=== PATIENT | female | born 1945 | race Caucasian/White ===

== ENCOUNTER 2017-01-08 16:44 | Observation (INO) | payer OTHER ==
[2017-01-08] VITALS (8 sets, daily range): BP systolic 156–212; BP diastolic 68–93; PULSE 61–67; RESP 17–22; TEMP 98.4; O2SAT 96–98
[~2017-01-08] VITALS: Ht 152.4 cm; Wt 90.0 kg
[~2017-01-08 16:44] MED LIST: ACET325 PO; ALBU.5I INH; ALBU8I INH; ASPI81TA82 PO; ATOR80TA41 PO; CALC625 PO; FLON0.053; GLUCTAB PO; IBUP600T26 PO; LISI-360 PO; OMEP20TA39 PO; TAB-TAB PO; VITA400C70 PO
[2017-01-08] MEDS ORDERED: NITROGLYCERIN 0.4 MG SL 25 TABS/BTL SL ONE (17:15)
[2017-01-08] MEDS ORDERED: SODIUM CHLORIDE 0.9% FLUSH 10 ML FLUSH IVF PRN (17:15)
[2017-01-08] MEDS ORDERED: GLIP5TAB8 PO (17:51)
[2017-01-08] MEDS ORDERED: ALBUAER3 INH (17:51)
[2017-01-08] MEDS ORDERED: ALBU0.63 NEB (17:51)
[2017-01-08] MEDS ORDERED: LISI-515 PO (17:51)
[2017-01-08] MEDS ORDERED: OMEP20TA PO (17:51)
[2017-01-08] MEDS ORDERED: METO25TA6 PO (17:51)
[2017-01-08] MEDS ORDERED: SYMB80AE INH (17:52)
[2017-01-08] MEDS ORDERED: METF500T PO (17:52)
[2017-01-08] MEDS ORDERED: ASPI81CH CHEW (17:52)
[2017-01-08] MEDS ORDERED: FLUT1SPR5 EACH NARE (17:52)
[2017-01-08] MEDS ORDERED: MIRA3350 PO (17:52)
[2017-01-08] MEDS ORDERED: ROSU1TAB10 PO (17:52)
--- NOTE | 2017-01-08 18:03 | PD ---
HPI Chief Complaint: Chest Pain Time Seen by Provider: 16:57 Travel History International Travel<30 days: No Contact w/Intl Traveler<30days: No Traveled to known affect area: No History of Present Illness HPI 71-year-old female that presents to the ED for evaluation of chest pain. Patient came by ambulance for evaluation of this. Patient has a chronic history of asthma as well as diabetes and hyperlipidemia. Also hypertension. Per patient she's had The past That Never Required Stenting but Only Medical Management. She Does Take Aspirin. She states that the pain has been ongoing for about 3 days. Per patient he feels like a pressure. Pain radiates to the left arm and has numbness and tingling. Denies any shortness of breath. No fevers chills or sweats. No cough or runny nose. Denies any shortness of breath or wheezing like. States that the pain is 7 out of 10. She wasn't not given any aspirin by ambulance as patient declined it. No injuries. No recent travel. PFSH Past Medical History Hx Anticoagulant Therapy: Yes (asa) Asthma: Yes Heart Rhythm Problems: No Cardiac Catheterization: No Cardiovascular Problems: Yes High Cholesterol: Yes Chest Pain: No Congestive Heart Failure: No COPD: No Diabetes: Yes Patient Takes Glucophage: Yes Diminished Hearing: No Diverticulitis: Yes Gastrointestinal Disorders: Yes GERD: Yes Genitourinary: No Hiatal Hernia: No Hypertension: Yes Musculoskeletal: No Neurologic: No Reproductive: No Respiratory: Yes (asthma) Sleep Apnea: No Ulcer: No Menopausal: Yes Ovarian Cysts: Yes Past Surgical History Abdominal Surgery: No Cardiac Surgery: No Coronary Artery Bypass Graft: No Ear Surgery: No Endocrine Surgery: No Eye Surgery: No Genitourinary Surgery: No Gynecologic Surgery: Yes (hysterectomy) Hysterectomy: Yes Oral Surgery: No Thoracic Surgery: No Other Surgery: Yes Family History Family Myocardial Infarction: Yes (PATERNAL) Social History Alcohol Use: No Tobacco Use: No Substance Use: No Allergies-Medications (Allergen,Severity, Reaction): Coded Allergies: aspirin (Unverified Allergy, Severe, ASTHMATIC ATTACK, 01/08/17) penicillin G (Unverified Allergy, Severe, Anaphylaxis, 01/08/17) milk (Unverified Allergy, Intermediate, DIARRHEA, 01/08/17) montelukast (Verified Allergy, Intermediate, 01/08/17) pregabalin (Verified Allergy, Intermediate, 01/08/17) Uncoded Allergies: COUGH SYRUP (Allergy, Severe, ASTHMATIC ATTACK, 06/15/08) Reported Meds & Prescriptions Reported Meds & Active Scripts Active Reported Miralax Powder (Polyethylene Glycol 3350 Powder) 17 Gm Powd 17 Gm PO DAILY Mix and dissolve one measuring cap-ful (17 grams) in water or juice. Rosuvastatin (Rosuvastatin Calcium) 40 Mg Tab 40 Mg PO DAILY Flonase Nasal [place] (Fluticasone Nasal [place]) 50 Mcg/Act [place] 50 Mcg EACH NARE BID Metformin (Metformin HCl) 500 Mg Tab 500 Mg PO BIDPC Aspirin 81 Mg Chew 81 Mg CHEW DAILY Symbicort Inh (Budesonide/Formoterol Fumarate) 80-4.5 Mcg/Act Aero 2 Puff INH Q12HR Proair Hfa 8.5 GM Inh (Albuterol Sulfate) 90 Mcg/Act Aer 2 Puff INH Q4HR PRN 108 mcg/actuation Albuterol Neb (Albuterol Sulfate) 0.63 Mg/3 Ml Neb 0.63 Mg NEB Q4HR NEB PRN Omeprazole 20 Mg Tab 20 Mg PO DAILY Glipizide 5 Mg Tab 5 Mg PO BIDAC Take 30 minutes before a meal Lisinopril 20 Mg Tab 20 Mg PO DAILY Metoprolol Succinate ER 24 HR (Metoprolol Succinate) 25 Mg Tab 25 Mg PO DAILY Review of Systems Except as stated in HPI: all other systems reviewed are Neg Physical Exam Narrative GENERAL: SKIN: Warm and dry. HEAD: Atraumatic. Normocephalic. EYES: Pupils equal and round. No scleral icterus. No injection or drainage. ENT: No nasal bleeding or discharge. Mucous membranes pink and moist. Tongue is midline. No uvula deviation. NECK: Trachea midline. No JVD. CARDIOVASCULAR: Regular rate and rhythm. No murmurs, S3, S4. Chest pain not reproducible with touch. RESPIRATORY: No accessory muscle use. Clear to auscultation. Breath sounds equal bilaterally. GASTROINTESTINAL: Abdomen soft, non-tender, nondistended. Hepatic and splenic margins not palpable. MUSCULOSKELETAL: Extremities without clubbing, cyanosis, or edema. No obvious deformities. Full range of motion of the upper and lower extremities bilaterally. 2+ pulses bilaterally. NEUROLOGICAL: Awake and alert. No obvious cranial nerve deficits. Motor grossly within normal limits. Five out of 5 muscle strength in the arms and legs. Normal speech. PSYCHIATRIC: Appropriate mood and affect; insight and judgment normal. Data Data Last Documented VS Vital Signs Date Time Temp Pulse Resp B/P (MAP) Pulse Ox O2 Delivery O2 Flow Rate FiO2 01/08/17 19:28 67 22 212/93 (132) Nasal Cannula 2.00 201/87 (125) 01/08/17 19:19 98 Orders Orders Electrocardiogram (01/08/17 17:05) Basic Metabolic Panel (Bmp) (01/08/17 17:05) B-Type Natriuretic Peptide (01/08/17 17:05) Ckmb (Isoenzyme) Profile (01/08/17 17:05) Complete Blood Count With Diff (01/08/17 17:05) Magnesium (Mg) (01/08/17 17:05) Prothrombin Time / Inr (Pt) (01/08/17 17:05) Act Partial Throm Time (Ptt) (01/08/17 17:05) Troponin I (01/08/17 17:05) Lipase (01/08/17 17:05) Chest, Single Ap (01/08/17 17:05) Ecg Monitoring (01/08/17 17:05) Bilateral Bp Monitoring (01/08/17 17:05) Iv Access Insert/Monitor (01/08/17 17:05) Oximetry (01/08/17 17:05) Oxygen Administration (01/08/17 17:05) Sodium Chloride 0.9% Flush (Ns Flush) (01/08/17 17:15) Nitroglycerin Sl (Nitrostat Sl) (01/08/17 17:15) B-Type Natriuretic Peptide (01/08/17 17:54) Ct Thorax/ Chest W Iv Contrast (01/08/17 ) Acetaminophen (Tylenol) (01/08/17 19:30) Clonidine (Catapres) (01/08/17 19:30) Iohexol 350 Inj (Omnipaque 350 Inj) (01/08/17 20:07) Azithromycin (Zithromax) (01/08/17 20:45) Admit Order (Ed Use Only) (01/08/17 20:38) Activity Bed Rest With Brp (01/08/17 20:39) Vital Signs (Adult) Q4H (01/08/17 20:39) Cardiac Rhythm .As Directed (01/08/17 20:39) Notify Dr: Other .PRN (01/08/17 20:39) Notify Dr. Parameters (01/08/17 20:39) Resp Oxygen Nasal Cannula (01/08/17 ) Ckmb (Isoenzyme) Profile (01/08/17 20:39) Ckmb (Isoenzyme) Profile (01/08/17 23:39) Troponin I (01/08/17 20:39) Troponin I (01/08/17 23:39) Electrocardiogram (01/08/17 20:39) Electrocardiogram (01/08/17 23:39) ^ Obtain (01/08/17 20:39) Sodium Chloride 0.9% Flush (Ns Flush) (01/08/17 20:45) Sodium Chloride 0.9% Flush (Ns Flush) (01/08/17 21:00) Acetaminophen (Tylenol) (01/08/17 20:45) Ondansetron Inj (Zofran Inj) (01/08/17 20:45) Manager Quality Compliance / Telemetry OZZIE.Q8H (01/08/17 20:39) Diet Diabetic (01/09/17 Breakfast) Labs Laboratory Tests Test 01/08/17 17:30 White Blood Count 8.2 TH/MM3 Red Blood Count 3.73 MIL/MM3 Hemoglobin 11.3 GM/DL Hematocrit 33.5 % Mean Corpuscular Volume 89.8 FL Mean Corpuscular Hemoglobin 30.3 PG Mean Corpuscular Hemoglobin Concent 33.8 % Red Cell Distribution Width 14.7 % Platelet Count 254 TH/MM3 Mean Platelet Volume 10.2 FL Neutrophils (%) (Auto) 68.9 % Lymphocytes (%) (Auto) 19.7 % Monocytes (%) (Auto) 7.1 % Eosinophils (%) (Auto) 3.7 % Basophils (%) (Auto) 0.6 % Neutrophils # (Auto) 5.7 TH/MM3 Lymphocytes # (Auto) 1.6 TH/MM3 Monocytes # (Auto) 0.6 TH/MM3 Eosinophils # (Auto) 0.3 TH/MM3 Basophils # (Auto) 0.0 TH/MM3 CBC Comment DIFF FINAL Differential Comment Prothrombin Time 10.5 SEC Prothromb Time International Ratio 1.0 RATIO Activated Partial Thromboplast Time 26.7 SEC Blood Urea Nitrogen 14 MG/DL Creatinine 0.90 MG/DL Random Glucose 75 MG/DL Calcium Level 9.0 MG/DL Magnesium Level 1.7 MG/DL Sodium Level 142 MEQ/L Potassium Level 3.6 MEQ/L Chloride Level 108 MEQ/L Carbon Dioxide Level 26.5 MEQ/L Anion Gap 8 MEQ/L Estimat Glomerular Filtration Rate 62 ML/MIN Total Creatine Kinase 64 U/L Troponin I LESS THAN 0.02 NG/ML B-Type Natriuretic Peptide 56 PG/ML Lipase 114 U/L MDM Medical Decision Making Medical Screen Exam Complete: Yes Emergency Medical Condition: Yes Medical Record Reviewed: Yes Interpretation(s) EKG shows sinus rhythm with no sign of acute ischemia or arrhythmia read by me and attending. Last Impressions Chest X-Ray 01/08/17 1705 Signed Impressions: Service Date/Time: Sunday, January 08, 2017 17:32 - CONCLUSION: Persistent, possibly increasing infiltrate in the left lower lung. There is also suggestion of right hilar adenopathy. Recommend further characterization with CT thorax with contrast. Tomas Israel MD Chest CT 01/08/17 0000 Signed Impressions: Service Date/Time: Sunday, January 08, 2017 19:49 - CONCLUSION: Lingular and left lung base infiltrate. Conrado Haas MD CBC & BMP Diagram 01/08/17 17:30 Calcium Level 9.0, Magnesium Level 1.7 Troponin and CK-MB negative. BNP negative. Differential Diagnosis Chest pain versus atypical chest pain versus an STEMI versus STEMI versus ACS versus normal exam Narrative Course 71-year-old female that presents to the ED for evaluation of chest pain. Patient was properly examined and was found to have signs and symptoms consistent appears to be possible cardiac chest pain. Labs and imaging were ordered. Patient was given nitroglycerin here. Initial EKG did not show any sign of ST elevation read by me and attending. Labs and imaging showed no sign of acute disease other than possible infiltrate. CT was ordered and CT show what appears to be infiltrated with likely possible pneumonia per my attending. Case was discussed with Dr. Moses who recommends admission to the chest pain center and starring the patient on azithromycin PO. Patient doesn't have a long also account she still symptomatic. Small infiltrate does not really explain why patient has this radiculopathy to the left arm and there is definite concern for ACS is patient does have a history of blockage per patient as well as multiple risk factors. This is why my attending Dr. Moses recommends admission to the chest pain center for chest pain center rule out. Patient was given the first dose of azithromycin here. She evaluate the patient with me and agrees with plan. Patient was admitted to the chest pain center. This was discussed with the family and patient were in agreement with plan. Caregiver was at the bedside and did mention to me that patient has been complaining of some right ear pain. I did examine both years and she does appear to have what appears to be an erythematous bulging right TM likely otitis media. Will continue with azithromycin for now. Procedures EKG Prior to Arrival: No Diagnosis Primary Impression: Chest pain in adult Admitting Information Admitting Physician Requests: Observation Jeol Rhodes Jan 08, 2017 18:03
--- NOTE | 2017-01-08 18:05 | RADRPT ---
EXAM DATE/TIME: 01/08/2017 17:32 [facility] COMPARISON: CHEST SINGLE AP, June 12, 2013, 1:32. INDICATIONS : Chest pain. MEDICAL HISTORY : asthma. SURGICAL HISTORY : None. ENCOUNTER: Initial ACUITY: 3 days PAIN SCORE: 10/10 LOCATION: Left chest FINDINGS: There is hazy opacity in the left lung causing some loss of delineation of the left heart border. A few air bronchograms are present in the left lower lung. There is fullness in the right hilar region . The heart is normal size. CONCLUSION: Persistent, possibly increasing infiltrate in the left lower lung. There is also suggestion of right hilar adenopathy. Recommend further characterization with CT thorax with contrast. Tomas Israel MD on January 08, 2017 at 18:03 Board Certified Radiologist. This report was verified electronically.
[2017-01-08 18:08] LABS: AUTOMATED NEUTROPHIL # 5.7 TH/MM3 (1.8-7.7); BASOPHIL % 0.6 % (0.0-2.0); EOSINOPHIL # 0.3 TH/MM3 (0-0.4); EOSINOPHIL % 3.7 % (0.0-4.0); HEMATOCRIT 33.5 % (35.0-46.0); HEMO FLAGS DIFF FINAL; LYMPH % 19.7 % (9.0-44.0); LYMPHOCYTE # 1.6 TH/MM3 (1.0-4.8); MEAN CELL VOLUME 89.8 FL (80.0-100.0); MEAN CORPUSCULAR HEMOGLOBIN 30.3 PG (27.0-34.0); MEAN CORPUSCULAR HGB CONC 33.8 % (32.0-36.0); MONO % 7.1 % (0.0-8.0); NEUT % 68.9 % (16.0-70.0); PLATELET COUNT 254 TH/MM3 (150-450); RED BLOOD COUNT 3.73 MIL/MM3 (4.00-5.30); RED CELL DISTRIBUTION WIDTH 14.7 % (11.6-17.2); WHITE BLOOD COUNT 8.2 TH/MM3 (4.0-11.0)
[2017-01-08 18:14] LABS: APTT (PATIENT) 26.7 SEC (24.3-30.1); PROTHROMBIN TIME - PATIENT 10.5 SEC (9.8-11.6)
[2017-01-08 18:31] LABS: ANION GAP 8 MEQ/L (5-15); BICARBONATE 26.5 MEQ/L (21.0-32.0); BLOOD UREA NITROGEN 14 MG/DL (7-18); CHLORIDE 108 MEQ/L (98-107); GLOMERULAR FILTRATION RATE 62 ML/MIN (>89); MAGNESIUM 1.7 MG/DL (1.5-2.5); POTASSIUM 3.6 MEQ/L (3.5-5.1); SODIUM (NA) 142 MEQ/L (136-145)
[2017-01-08 18:46] LABS: CREATINE KINASE 64 U/L (26-192)
[2017-01-08] MEDS ORDERED: ACETAMINOPHEN 325 MG TAB PO ONE (19:30)
[2017-01-08] MEDS ORDERED: cloNIDine HCL 0.1 MG TAB PO ONE (19:30)
[2017-01-08] MEDS ORDERED: IOHEXOL 350 MG/ML 10 ML VIAL (for RAD DIAG) IVCONTRAST ONE (20:07)
--- NOTE | 2017-01-08 20:24 | RADRPT ---
EXAM DATE/TIME: 01/08/2017 19:49 [facility] COMPARISON: CT ABDOMEN & PELVIS W CONTRAST, December 30, 2013, 20:06. INDICATIONS : Patient complains of chest pain, numbness down into left arm. IV CONTRAST: 70 cc Omnipaque 350 (iohexol) IV RADIATION DOSE: 7.14 CTDIvol (mGy) MEDICAL HISTORY : Hypertension. Diverticulitis. Diabetes mellitus type 1. SURGICAL HISTORY : Hysterectomy. ENCOUNTER: Initial ACUITY: 2 days PAIN SCALE: 5/10 LOCATION: chest TECHNIQUE: Volumetric scanning of the chest was performed. Using automated exposure control and adjustment of t he mA and/or kV according to patient size, radiation dose was kept as low as reasonably achievable to obtain optimal diagnostic quality images. DICOM format image data is available electronically for review and comparison. Follow-up recommendations for detected pulmonary nodules are based at a minimum on nodule size and pa tient risk factors according to Fleischner Society Guidelines. FINDINGS: Mild left lung base and lingular atelectasis and/or infiltrate is seen.. There is no pleural effusio n. No appreciable pathological adenopathy is seen within the mediastinum. Coronary artery calcificat ions are seen typically seen with CAD and need to be evaluated clinically. Approximate 5.7 cm simple cyst is present in the left kidney present on the prior study from 2013. CONCLUSION: Lingular and left lung base infiltrate. Conrado Haas MD on January 08, 2017 at 20:20 Board Certified Radiologist. This report was verified electronically.
[2017-01-08] MEDS ORDERED: SODIUM CHLORIDE 0.9% FLUSH 10 ML FLUSH IV FLUSH PRN (20:45)
[2017-01-08] MEDS ORDERED: AZITHROMYCIN 250 MG TAB PO ONE (20:45)
[2017-01-08] MEDS ORDERED: ACETAMINOPHEN 500 MG CPLT PO PRN (20:45)
[2017-01-08] MEDS ORDERED: ONDANSETRON HCL 4 MG/2 ML VIAL IV PUSH PRN (20:45)
[2017-01-08] MEDS ORDERED: SODIUM CHLORIDE 0.9% FLUSH 10 ML FLUSH IV FLUSH SCH (21:00)
--- NOTE | 2017-01-08 21:42 | EKG ---
Date Performed: 01/08/2017 Time Performed: 17:02:44 PTAGE: 71 years EKG: Sinus rhythm NONSPECIFIC T-WAVE ABNORMALITY BORDERLINE ECG PREVIOUS TRACING : 01/21/2014 20.10 Compared to prior tracing no significant change DOCTOR: Donna Nagy Interpretating Date/Time 01/08/2017 21:42:15
[2017-01-08 22:09] LABS: CREATINE KINASE 78 U/L (26-192)
[2017-01-09 00:07] VITALS: BP 135/60; PULSE 66; RESP 17; TEMP 97.8; O2SAT 93
[2017-01-09 00:17] VITALS: PULSE 75
[2017-01-09 00:44] LABS: CREATINE KINASE 52 U/L (26-192)
[2017-01-09 03:31] VITALS: BP 140/63; PULSE 68; RESP 17; TEMP 98.5; O2SAT 94
[2017-01-09 03:45] VITALS: PULSE 62
[2017-01-09 07:41] VITALS: BP 145/63; PULSE 62; RESP 20; TEMP 97.7; O2SAT 94
[2017-01-09 07:53] VITALS: O2SAT 95
--- NOTE | 2017-01-09 08:21 | HHI.HP ---
HPI Primary Care Physician Gian Robins Chief Complaint Chest pain History of Present Illness 71-year-old female with known hypertension and diabetes presents to emergency room for further evaluation of chest pain. Onset Saturday afternoon aggressively becoming more severe. Location substernal, characterized as tightness. Duration intermittent lasting a few minutes, nonexertional. No radiation. No known precipitating or relieving factors. No associated symptoms of nausea, vomiting, shortness of breath, or diaphoresis. No recent illness or sputum production. Endorses similar pain in the past. Review of Systems General: No fatigue,weakness, fever, chills, or recent illness. Has been her general state of health, however endorses she is currently under a lot of stress as her is terminally ill. HEENT: No MIRZA, seasonal allergies, takes Flonase for nasal congestion. CV: As stated above. No current chest pain, tightness, or pressure. RESP: No SOB, cough, wheeze, or sputum production. History of asthma, reporting to currently be well controlled without increase use of rescue inhalers. GI: No nausea, vomiting, or bowel changes. History of gastritis and diverticulosis. EXT: No pedal edema. MS: No discomfort or change in ROM NEURO: No change in memory, difficulty with balance, LOC, motor/sensory deficits PSYCH: Current situational stress regarding 's terminal illness. SKIN: No rashes, no concerning lesions Past Family Social History Allergies: Coded Allergies: aspirin (Unverified Allergy, Severe, ASTHMATIC ATTACK, 01/08/17) penicillin G (Unverified Allergy, Severe, Anaphylaxis, 01/08/17) milk (Unverified Allergy, Intermediate, DIARRHEA, 01/08/17) montelukast (Verified Allergy, Intermediate, 01/08/17) pregabalin (Verified Allergy, Intermediate, 01/08/17) Uncoded Allergies: COUGH SYRUP (Allergy, Severe, ASTHMATIC ATTACK, 06/15/08) Past Medical History Hypertension, diabetes, asthma, diverticulosis, gastritis Past Surgical History Hysterectomy at age 27. Right knee surgery, left carpal tunnel on an elbow surgery Reported Medications Reported Meds & Active Scripts Active Reported Miralax Powder (Polyethylene Glycol 3350 Powder) 17 Gm Powd 17 Gm PO DAILY Mix and dissolve one measuring cap-ful (17 grams) in water or juice. Rosuvastatin (Rosuvastatin Calcium) 40 Mg Tab 40 Mg PO DAILY Flonase Nasal Vincent (Fluticasone Nasal Vincent) 50 Mcg/Act Vincent 50 Mcg EACH NARE BID Metformin (Metformin HCl) 500 Mg Tab 500 Mg PO BIDPC Aspirin 81 Mg Chew 81 Mg CHEW DAILY Symbicort Inh (Budesonide/Formoterol Fumarate) 80-4.5 Mcg/Act Aero 2 Puff INH Q12HR Proair Hfa 8.5 GM Inh (Albuterol Sulfate) 90 Mcg/Act Aer 2 Puff INH Q4HR PRN 108 mcg/actuation Albuterol Neb (Albuterol Sulfate) 0.63 Mg/3 Ml Neb 0.63 Mg NEB Q4HR NEB PRN Omeprazole 20 Mg Tab 20 Mg PO DAILY Glipizide 5 Mg Tab 5 Mg PO BIDAC Take 30 minutes before a meal Lisinopril 20 Mg Tab 20 Mg PO DAILY Metoprolol Succinate ER 24 HR (Metoprolol Succinate) 25 Mg Tab 25 Mg PO DAILY Active Ordered Medications Current Medications Medications (Trade) Dose Ordered Sig/Miryam Route Start Time Stop Time Status Last Admin (NS Flush) 2 ml UNSCH PRN IVF 01/08/17 17:15 (NS Flush) 2 ml UNSCH PRN IV FLUSH 01/08/17 20:45 (NS Flush) 2 ml BID IV FLUSH 01/08/17 21:00 01/08/17 22:58 (Tylenol) 500 mg Q4H PRN PO 01/08/17 20:45 01/08/17 22:58 (Zofran Inj) 4 mg Q6H PRN IV PUSH 01/08/17 20:45 Family History Brother age 46 MD. Father cardiac stents in his late 60s. Social History Known hypertension and diabetes. No known hyperlipidemia or coronary artery disease. Lifelong nonsmoker. Denies any alcohol or illegal drug use. Ambulates independently. Lives with , they have a caregiver. Past cardiac testing 12/29/2008-Cardiac catheterization-(Dr. Goldstein) Assessment 1. Essentially normal coronary arteries by angiography. 2. Preserved LV systolic function. Recommendations-1. Risk factor modification. 2. Continue workup for noncardiac causes of chest pain. Physical Exam Vital Signs Vital Signs Date Time Temp Pulse Resp B/P (MAP) Pulse Ox O2 Delivery O2 Flow Rate FiO2 01/09/17 07:41 97.7 62 20 145/63 (90) 94 10/25/17 03:45 62 01/09/17 03:31 98.5 68 17 140/63 (88) 94 01/09/17 00:17 75 01/09/17 00:07 97.8 66 17 135/60 (85) 93 01/09/17 00:02 18 01/08/17 22:16 98.4 61 17 156/72 (100) 96 01/08/17 22:04 01/08/17 21:35 97 Nasal Cannula 2.00 01/08/17 20:47 62 20 159/68 (98) 97 Nasal Cannula 2.00 01/08/17 19:28 67 22 212/93 (132) Nasal Cannula 2.00 201/87 (125) 01/08/17 19:19 61 20 212/93 (132) 98 Nasal Cannula 01/08/17 17:44 97 Nasal Cannula 2.00 01/08/17 17:40 61 175/81 (112) 01/08/17 17:40 97 Nasal Cannula 2.00 01/08/17 17:02 66 18 177/82 (113) 97 Nasal Cannula 2.00 01/08/17 16:59 67 18 177/82 (113) 97 Physical Exam GENERAL: Alert WN, WD, NAD, , obese elderly female HEAD: NC, AT EYES: Sclera clear, pupils equal and round ENT: Mucous membranes pink and moist NECK: Supple, no masses, trachea midline CV: RRR, without murmur, rub, gallop, no JVD, S1-S2 no S3-S4. Chest pain not reproduced with palpation. RESP: Clear lungs throughout bilateral, no crackles, wheeze, rhonchi, symmetrical chest rise, nonlabored, able to speak in full sentences ABD: Soft, NT, ND, no masses, positive bowel tones EXT: Pulses +24 MS: Normal tone 4 extremities, nontender, no obvious deformities, full range of motion NEURO: CN II through CN XII grossly intact, motor strength 5/5 PSYCH: A+O 3, pleasant affect, appropriate speech, appropriate mood and affect , insight and judgment SKIN: Normal turgor, normal texture, no lesions, no rashes Laboratory Laboratory Tests Test 01/08/17 17:30 01/08/17 20:50 01/09/17 00:00 White Blood Count 8.2 Red Blood Count 3.73 Hemoglobin 11.3 Hematocrit 33.5 Mean Corpuscular Volume 89.8 Mean Corpuscular Hemoglobin 30.3 Mean Corpuscular Hemoglobin Concent 33.8 Red Cell Distribution Width 14.7 Platelet Count 254 Mean Platelet Volume 10.2 Neutrophils (%) (Auto) 68.9 Lymphocytes (%) (Auto) 19.7 Monocytes (%) (Auto) 7.1 Eosinophils (%) (Auto) 3.7 Basophils (%) (Auto) 0.6 Neutrophils # (Auto) 5.7 Lymphocytes # (Auto) 1.6 Monocytes # (Auto) 0.6 Eosinophils # (Auto) 0.3 Basophils # (Auto) 0.0 CBC Comment DIFF FINAL Differential Comment Prothrombin Time 10.5 Prothromb Time International Ratio 1.0 Activated Partial Thromboplast Time 26.7 Blood Urea Nitrogen 14 Creatinine 0.90 Random Glucose 75 Calcium Level 9.0 Magnesium Level 1.7 Sodium Level 142 Potassium Level 3.6 Chloride Level 108 Carbon Dioxide Level 26.5 Anion Gap 8 Estimat Glomerular Filtration Rate 62 Total Creatine Kinase 64 78 52 Troponin I LESS THAN 0.02 LESS THAN 0.02 LESS THAN 0.02 B-Type Natriuretic Peptide 56 Lipase 114 Result Diagram: 01/08/17172901/08/171729 Imaging Last Impressions Myocardial Perfusion Scan Nuc Med 01/09/17 0000 Signed Impressions: Service Date/Time: Monday, January 09, 2017 10:21 - CONCLUSION: 1. No fixed or reversible defects to suggest ischemia or infarction. 2. Decreased calculated ejection fraction of 47%%. The left ventricle is mildly dilated. RISK CATEGORY : Low (<1%% Annual Mortality Rate) Arturo Priest MD Chest X-Ray 01/08/17 1705 Signed Impressions: Service Date/Time: Sunday, January 08, 2017 17:32 - CONCLUSION: Persistent, possibly increasing infiltrate in the left lower lung. There is also suggestion of right hilar adenopathy. Recommend further characterization with CT thorax with contrast. Tomas Israel MD Chest CT 01/08/17 0000 Signed Impressions: Service Date/Time: Sunday, January 08, 2017 19:49 - CONCLUSION: Lingular and left lung base infiltrate. Conrado Haas MD Course EKG Sinus rhythm, nonspecific T-wave changes Caprini VTE Risk Assessment Caprini VTE Risk Assessment: Mod/High Risk (score >= 2) Caprini Risk Assessment Model Point Value = 1 Point Value = 2 Point Value = 3 Point Value = 5 Age 41-60 Minor surgery BMI > 25 kg/m2 Swollen legs Varicose veins or History of unexplained or recurrent spontaneous Oral contraceptives or hormone replacement Sepsis (< 1 month) Serious lung disease, including pneumonia (< 1 month) Abnormal pulmonary function Acute myocardial infarction Congestive heart failure (< 1 month) History of inflammatory bowel disease Medical patient at bed rest Age 61-74 Arthroscopic surgery Major open surgery (> 45 min) Laparoscopic surgery (> 45 min) Malignancy Confined to bed (> 72 hours) Immobilizing plaster cast Central venous access Age >= 75 History of VTE Family history of VTE Factor V Leiden Prothrombin [id number] Lupus anticoagulant Anticardiolipin antibodies Elevated serum homocysteine Heparin-induced thrombocytopenia Other congenital or acquired thrombophilia Stroke (< 1 month) Elective arthroplasty Hip, pelvis, or leg fracture Acute spinal cord injury (< 1 month) Prophylaxis Regimen Total Risk Factor Score Risk Level Prophylaxis Regimen 0-1 Low Early ambulation 2 Moderate Order ONE of the following: *Sequential Compression Device (SCD) *Heparin 5000 units SQ BID 3-4 Higher Order ONE of the following medications: *Heparin 5000 units SQ TID *Enoxaparin/Lovenox 40 mg SQ daily (WT < 150 kg, CrCl > 30 mL/min) *Enoxaparin/Lovenox 30 mg SQ daily (WT < 150 kg, CrCl > 10-29 mL/min) *Enoxaparin/Lovenox 30 mg SQ BID (WT < 150 kg, CrCl > 30 mL/min) AND/OR *Sequential Compression Device (SCD) 5 or more Highest Order ONE of the following medications: *Heparin 5000 units SQ TID (Preferred with Epidurals) *Enoxaparin/Lovenox 40 mg SQ daily (WT < 150 kg, CrCl > 30 mL/min) *Enoxaparin/Lovenox 30 mg SQ daily (WT < 150 kg, CrCl > 10-29 mL/min) *Enoxaparin/Lovenox 30 mg SQ BID (WT < 150 kg, CrCl > 30 mL/min) AND *Sequential Compression Device (SCD) Assessment and Plan Assessment and Plan #1 Chest pain-admitted to chest pain center. Ruled out with 3 sets of EKGs, cardiac enzymes, and monitor telemetry overnight. Seen and evaluated by Dr. Dominick Domingo. Proceed with chemical stress test, if unremarkable will discharge home later this afternoon. #2 Hypertension-continue metoprolol and lisinopril #3 Diabetes-continue metformin and glipizide, continue Crestor #4 Asthma-continue Symbicort and albuterol every 2 hours when necessary as needed #5 Situational stress-encouraged support from her family and friends. Eli Rashid Jan 09, 2017 08:21
[2017-01-09] MEDS ORDERED: REGADENOSON INJ 0.4 MG/5 ML SYR ONE (10:51)
--- NOTE | 2017-01-09 12:43 | RADRPT ---
EXAM DATE/TIME: 01/09/2017 10:21 [facility] COMPARISON: CT THORAX W CONTRAST, January 08, 2017, 19:49. INDICATIONS : Left chest pain radiating to left arm. Angina. DOSE: 25.8 mCi Tc99m Myoview at stress. 8.7 mCi Tc99m Myoview at rest. 0.4 mg Lexiscan STRESS SYMPTOMS: Short of breath. EJECTION FRACTION: 47% MEDICAL HISTORY : Hypertension. Diabetes mellitus type 2. Gastroesophageal reflux disease. SURGICAL HISTORY : Hysterectomy. ENCOUNTER: Initial ACUITY: 3 days PAIN SCALE: 7/10 LOCATION: Left chest TECHNIQUE: The patient underwent pharmacologic stress with infusion of prescribed dose. Continuous ECG tracing was monitored during stress. Gated SPECT imaging was performed after stress and conventional SPECT i maging was performed at rest. The examination was performed on a SPECT/CT scanner, both attenuation and non-corrected datasets were reviewed. FINDINGS: DISTRIBUTION: The maximum perfused segment at stress is in the anterior wall. PERFUSION STUDY: The pattern of perfusion at stress is within normal limits. GATED STUDY: There is intact wall motion and thickening without hypokinetic or dyskinetic segments. The left ventr icle is mildly dilated in the t.i.d. equals 1.14. CONCLUSION: 1. No fixed or reversible defects to suggest ischemia or infarction. 2. Decreased calculated ejection fraction of 47%. The left ventricle is mildly dilated. RISK CATEGORY: Low (<1% Annual Mortality Rate) Arturo Priest MD on January 09, 2017 at 12:36 Board Certified Radiologist. This report was verified electronically.
--- NOTE | 2017-01-09 13:37 | HHI.DCPOC ---
Discharge Care Plan Diagnosis: (1) Atypical chest pain (2) Hypertension (3) Situational stress (4) Type 2 diabetes mellitus Goals to Promote Your Health * To prevent worsening of your condition and complications * To maintain your health at the optimal level Directions to Meet Your Goals Take your medications as prescribed Follow your dietary instruction Follow activity as directed Keep your appointments as scheduled Take your immunizations and boosters as scheduled If your symptoms worsen call your PCP, if no PCP go to Urgent Care Center or Emergency Room Smoking is Dangerous to Your Health. Avoid second hand smoke Call the 24-hour hour crisis hotline for domestic abuse at Eli Rashid Jan 09, 2017 13:37
[2017-01-09] MEDS ORDERED: PANTOPRAZOLE SOD 20 MG DELAYED RELEASE TAB PO SCH (15:15)
[2017-01-09] MEDS ORDERED: BUDESONIDE-FORMOTEROL 80/4.5 MCG INHALER INH SCH (15:15)
[2017-01-09] MEDS ORDERED: ATORVASTATIN 80 MG TAB PO SCH (15:15)
[2017-01-09] MEDS ORDERED: METOPROLOL SUCCINATE 25 MG EXTENDED RELEASE TAB PO SCH (15:30)
[2017-01-09] MEDS ORDERED: LISINOPRIL 20 MG TAB PO SCH (15:30)
[2017-01-09] MEDS ORDERED: glipiZIDE 5 MG TAB PO SCH (16:00)
--- NOTE | 2017-01-09 16:12 | EKG ---
Date Performed: 01/09/2017 Time Performed: 00:12:22 PTAGE: 71 years EKG: Sinus rhythm NONSPECIFIC T-WAVE ABNORMALITY BORDERLINE ECG PREVIOUS TRACING : 01/08/2017 21.01 Since previous tracing, non specific T wave changes are mor e prominent DOCTOR: Dominick Domingo Interpretating Date/Time 01/09/2017 16:11:39
--- NOTE | 2017-01-09 16:16 | EKG ---
Date Performed: 01/08/2017 Time Performed: 21:01:15 PTAGE: 71 years EKG: SINUS BRADYCARDIA BORDERLINE ECG PREVIOUS TRACING : 01/08/2017 17.02 Since previous tracing, no significant change noted DOCTOR: Dominick Domingo Interpretating Date/Time 01/09/2017 16:13:59
--- NOTE | 2017-01-09 16:19 | TR ---
Date Performed: 01/09/2017 Time Performed: 11:01:15 DOCTOR: Dominick Domingo DRUG LIST: CLINICAL HISTORY: REASON FOR TEST: REASON FOR ENDING: OBSERVATION: CONCLUSION: Lexiscan stress test was performed under standard four minute protocol. Radionuclid e was injected one minute prior to ending the test. No electrocardiographic abormalities were present to suggest ischemia. Nuclear imaging and interpretation are pending. COMMENTS:
[2017-01-11] MEDS ORDERED: metFORMIN HCL 500 MG TAB PO SCH (09:00)
== END 2017-01-09 15:56 | disposition home or self-care (01) ==
LOC: NEPE 16:44 → NEDA 20:39 → NEPHCDU 21:59
PROVIDERS: ADMIT Internal Medicine Interventional Cardiology; ATTEND Internal Medicine Interventional Cardiology
DX: R07.89 Other chest pain (principal); I10 Essential (primary) hypertension; E11.9 Type 2 diabetes mellitus without complications; R20.2 Paresthesia of skin; J45.909 Unspecified asthma, uncomplicated; E78.00 Pure hypercholesterolemia, unspecified; K21.9 Gastro-esophageal reflux disease without esophagitis; K57.92 Diverticulitis of intestine, part unspecified, without perforation or abscess without bleeding; R94.31 Abnormal electrocardiogram [ECG] [EKG]; Z79.84 Long term (current) use of oral hypoglycemic drugs
CPT/HCPCS: 71010; 71260; 78452; 80048; 82550; 83690; 83735; 83880; 84484; 85025; 85610; 85730; 93005; 93017; 99285; A9502; G0378; J2785; Q9967

== ENCOUNTER 2017-02-27 23:58 | Emergency (ER) | payer OTHER ==
[~2017-02-27] VITALS: Ht 152.4 cm; Wt 90.0 kg
[~2017-02-27 23:58] MED LIST changes: -ACET325 PO; -ALBU.5I INH; +ALBU0.63 NEB; -ALBU8I INH; +ALBUAER3 INH; +ASPI-516 CHEW; -ASPI81TA82 PO; -ATOR80TA41 PO; -CALC625 PO; -FLON0.053; +FLUT1SPR5 EACH NARE; +GLIP5TAB8 PO; -GLUCTAB PO; -IBUP600T26 PO; -LISI-360 PO; +LISI-515 PO; +METF500T PO; +METO1TAB42 PO; +MIRA3350 PO; -OMEP20TA39 PO; +OMEP20TA93 PO; +ROSU1TAB10 PO; +SYMB80AE INH; -TAB-TAB PO; -VITA400C70 PO
[2017-02-28] VITALS: BP 215/98; PULSE 75; RESP 20; TEMP 97.7; O2SAT 99
--- NOTE | 2017-02-28 01:53 | PD ---
HPI Chief Complaint: Injury Time Seen by Provider: 01:45 Travel History International Travel<30 days: No Contact w/Intl Traveler<30days: No Traveled to known affect area: No History of Present Illness HPI 71-year-old female here for evaluation of bilateral hand pain. She reports that she got her hand stuck in a reclining chair this evening. She has pain in both hands, right greater than left, aching, worse with palpation, associated bruising. No other complaints. PFSH Past Medical History Hx Anticoagulant Therapy: Yes (asa) Asthma: Yes Heart Rhythm Problems: No Cardiac Catheterization: Yes (2009) Cardiovascular Problems: Yes High Cholesterol: Yes Chest Pain: No Congestive Heart Failure: No COPD: No Diabetes: Yes Patient Takes Glucophage: Yes Diminished Hearing: No Diverticulitis: Yes Gastrointestinal Disorders: Yes GERD: Yes Genitourinary: No Hiatal Hernia: No Hypertension: Yes Musculoskeletal: No Neurologic: No Reproductive: No Respiratory: Yes (asthma) Sleep Apnea: No Ulcer: No Menopausal: Yes Ovarian Cysts: Yes Past Surgical History Abdominal Surgery: No Cardiac Surgery: No Coronary Artery Bypass Graft: No Ear Surgery: No Endocrine Surgery: No Eye Surgery: No Genitourinary Surgery: No Gynecologic Surgery: Yes (hysterectomy) Hysterectomy: Yes Oral Surgery: No Thoracic Surgery: No Other Surgery: Yes Family History Family Myocardial Infarction: Yes (Brother) Social History Alcohol Use: No Tobacco Use: No Substance Use: No Allergies-Medications (Allergen,Severity, Reaction): Coded Allergies: aspirin (Unverified Allergy, Severe, ASTHMATIC ATTACK, 02/28/17) penicillin G (Unverified Allergy, Severe, Anaphylaxis, 02/28/17) milk (Unverified Allergy, Intermediate, DIARRHEA, 02/28/17) montelukast (Verified Allergy, Intermediate, 02/28/17) pregabalin (Verified Allergy, Intermediate, 02/28/17) Uncoded Allergies: COUGH SYRUP (Allergy, Severe, ASTHMATIC ATTACK, 06/15/08) Reported Meds & Prescriptions Reported Meds & Active Scripts Active Reported Miralax Powder (Polyethylene Glycol 3350 Powder) 17 Gm Powd 17 Gm PO DAILY Mix and dissolve one measuring cap-ful (17 grams) in water or juice. Rosuvastatin (Rosuvastatin Calcium) 40 Mg Tab 40 Mg PO DAILY Flonase Nasal Henderson (Fluticasone Nasal Henderson) 50 Mcg/Act Henderson 50 Mcg EACH NARE BID Metformin (Metformin HCl) 500 Mg Tab 500 Mg PO BIDPC Aspirin 81 Mg Chew 81 Mg CHEW DAILY Symbicort Inh (Budesonide/Formoterol Fumarate) 80-4.5 Mcg/Act Aero 2 Puff INH Q12HR Proair Hfa 8.5 GM Inh (Albuterol Sulfate) 90 Mcg/Act Aer 2 Puff INH Q4HR PRN 108 mcg/actuation Albuterol Neb (Albuterol Sulfate) 0.63 Mg/3 Ml Neb 0.63 Mg NEB Q4HR NEB PRN Omeprazole 20 Mg Tab 20 Mg PO DAILY Glipizide 5 Mg Tab 5 Mg PO BIDAC Take 30 minutes before a meal Lisinopril 20 Mg Tab 20 Mg PO DAILY Metoprolol Succinate ER 24 HR (Metoprolol Succinate) 25 Mg Tab 25 Mg PO DAILY Review of Systems General / Constitutional: No: Fever, Chills Musculoskeletal: Positive: Pain Skin: Positive Other (positive for bruising) Physical Exam Narrative GENERAL: Well-nourished female in no acute distress SKIN: Warm and dry. Some bruising noted to the dorsum of the right hand. Some bruising noted to the left second and third fingers. HEAD: Atraumatic. Normocephalic. EYES: Pupils equal and round. No scleral icterus. No injection or drainage. ENT: No nasal bleeding or discharge. Mucous membranes pink and moist. NECK: Trachea midline. No JVD. CARDIOVASCULAR: Regular rate and rhythm. No murmur appreciated. RESPIRATORY: No accessory muscle use. Clear to auscultation. Breath sounds equal bilaterally. GASTROINTESTINAL: Abdomen soft, non-tender, nondistended. Hepatic and splenic margins not palpable. MUSCULOSKELETAL: Skin as noted above with associated tenderness to palpation of both hands. NEUROLOGICAL: Awake and alert. No obvious cranial nerve deficits. Motor grossly within normal limits. Normal speech. Data Data Last Documented VS Vital Signs Date Time Temp Pulse Resp B/P (MAP) Pulse Ox O2 Delivery O2 Flow Rate FiO2 02/28/17 00:00 97.7 75 20 215/98 (137) 99 Room Air Orders Orders Hand, Complete ([id number]) (02/28/17 ) Ice/Cold Pack (02/28/17 01:41) Hand, Complete ([id number]) (02/28/17 ) Ed Discharge Order (02/28/17 02:51) [facility] Medical Decision Making Medical Screen Exam Complete: Yes Emergency Medical Condition: Yes Medical Record Reviewed: Yes Differential Diagnosis Contusion, fracture, sprain, dislocation Narrative Course X-ray imaging of the hands reveal no acute abnormalities. The patient appears to have sustained bilateral hand contusions. She is stable for discharge. Diagnosis Primary Impression: Contusion of left hand Additional Impression: Contusion of right hand Additional Instructions: Icepack effected area several times a day 15 minutes at a time. Return for any emergent medical conditions. Med/Other Pt SpecificInfo: No Change to Meds Disposition: 01 DISCHARGE HOME Condition: Stable Santiago Marti Feb 28, 2017 01:53
--- NOTE | 2017-02-28 02:40 | RADRPT ---
EXAM DATE/TIME: 02/28/2017 01:57 [facility] COMPARISON: No previous studies available for comparison. INDICATIONS : Left hand pain. Patient states she got her hand caught in her recliner. MEDICAL HISTORY : None. SURGICAL HISTORY : None. ENCOUNTER: Initial ACUITY: 1 day PAIN SCORE: 5/10 LOCATION: Left left. FINDINGS: Three view examination of the left hand demonstrates no soft tissue swelling, dislocation, or fractur e. The carpal bones appear intact. The interphalangeal and metacarpophalangeal joints are intact. Bony mineralization is normal. CONCLUSION: No evidence of recent bony injury. Tomas Israel MD on February 28, 2017 at 2:39 Board Certified Radiologist. This report was verified electronically.
--- NOTE | 2017-02-28 02:41 | RADRPT ---
EXAM DATE/TIME: 02/28/2017 02:01 [facility] COMPARISON: No previous studies available for comparison. INDICATIONS : Right hand pain. Patient states she got her hand caught in her recliner. MEDICAL HISTORY : None. SURGICAL HISTORY : None. ENCOUNTER: Initial ACUITY: 1 day PAIN SCORE: 8/10 LOCATION: Right hand. FINDINGS: Three view examination of the right hand demonstrates no soft tissue swelling, dislocation, or fractu re. The carpal bones appear intact. The interphalangeal and metacarpophalangeal joints are intact. Bony mineralization is normal. CONCLUSION: No evidence of recent bony injury. Tomas Israel MD on February 28, 2017 at 2:39 Board Certified Radiologist. This report was verified electronically.
== END 2017-02-28 03:50 | disposition home or self-care (01) ==
LOC: NEPD 23:58
DX: S60.222A Contusion of left hand, initial encounter (principal); S60.221A Contusion of right hand, initial encounter; J45.909 Unspecified asthma, uncomplicated; E78.00 Pure hypercholesterolemia, unspecified; E11.9 Type 2 diabetes mellitus without complications; I10 Essential (primary) hypertension; K21.9 Gastro-esophageal reflux disease without esophagitis; W23.0XXA Caught, crushed, jammed, or pinched between moving objects, initial encounter; Z87.19 Personal history of other diseases of the digestive system
CPT/HCPCS: 73130; 99284